=== PATIENT | female | born 1965 | race Caucasian/White ===

== ENCOUNTER 2020-07-31 08:52 | Day surgery (SDC) | payer SELFPAY ==
[2020-07-31] VITALS (8 sets, daily range): BP systolic 87–111; BP diastolic 52–68
[~2020-07-31] VITALS: Ht 167.6 cm; Wt 54.4 kg
[~2020-07-31 08:52] MED LIST: FISH OIL CAP1000 MG ORAL; LR 1000ml 1,000 ML IVLG SCH; NKM; Vit C PO
--- NOTE | 2020-07-31 08:58 | Anethesia Preoperative Eval ---
Anesthesia Pre-op PMH/ROS General Date of Evaluation: Jul 31, 2020 Anesthesiologist: Eric ASA Score: ASA 1 Mallampati Score Class I : Soft palate, uvula, fauces, pillars visible Class II: Soft palate, uvula, fauces visible Class III: Soft palate, base of uvula visible Class IV: Only hard plate visible Mallampati Classification: Class I Surgeon: Shreyas Diagnosis: Lesion Surgical Procedure: EGD Anesthesia History: none Family History: no anesthesia problems Allergies: Coded Allergies: PENICILLINS (Verified Adverse Reaction, Unknown, unknown, 08/05/16) Medications: see eMAR Patient NPO?: Yes NPO Date: Jul 31, 2020 NPO Time: 00:00 Past Medical History Cardiovascular: Denies: HTN, CAD, SD, valve dz, arrhythmia, other Pulmonary: Denies: asthma, COPD, ISAIAH, other Gastrointestinal/Genitourinary: Denies: GERD, CRI, ESRD, other Neurologic/Psychiatric: Denies: dementia, CVA, depression/anxiety, TIA, other Endocrine: Denies: DM, hypothyroidism, steroids, other HEENT: Denies: cataract (L), cataract (R), glaucoma, KAW (L), KAW (R), other Hematology/Immune: Denies: anemia, DVT, bleeding disorder, other Musculoskeletal/Integumentary: Denies: OA, RA, DJD, DDD, edema, other PSxH Narrative: c/s Anesthesia Pre-op Phys. Exam Physician Exam see chart Constitutional: NAD Cardiovascular: RRR Respiratory: CTA Airway Exam Mallampati Score: Class II MO: full ROM: full Anesthesia Pre-op A/P Labs see chart Studies Pre-op Studies: EKG - sr Risk Assessment & Plan Assessment: ASA I Plan: MAC Status Change Before Surgery: No Pre-Antibiotics Drug: N/A Dori Reyes MD Jul 31, 2020 08:58
[2020-07-31] MEDS ORDERED: LR 1000ml 1,000 ML IVLG SCH (09:00)
[2020-07-31] MEDS ORDERED: DiphenhydrAMINE 50mg/ml Inj IVP PRN (09:00)
[2020-07-31] MEDS ORDERED: Labetalol 5mg/ml 20ml vial IV PRN (09:00)
--- NOTE | 2020-07-31 09:52 | Pre-Procedure Note/Attestation ---
Pre-Procedure Note/Attestation Complete Prior to Procedure Planned Procedure: not applicable Procedure Narrative: egd Indications for Procedure Pre-Operative Diagnosis: mass Attestation I attest that I discussed the nature of the procedure; its benefits; risks and complications; and alternatives (and the risks and benefits of such alternatives), prior to the procedure, with the patient (or the patient's legal internet sales representative). I attest that, if there was a reasonable possibility of needing a blood transfusion, the patient (or the patient's legal internet sales representative) was given the [facility] standardized written summary, pursuant to the Anatoliy Henrry Blood Safety Act ([place] Health and Safety Code # 1645, as amended). I attest that I re-evaluated the patient just prior to the surgery and that there has been no change in the patient's H&P, except as documented below: Obey Pritchett MD Jul 31, 2020 09:52
--- NOTE | 2020-07-31 09:53 | Short Stay Surgery H&P ---
History of Present Illness History of Present Illness Chief Complaint dysphagia HPI Carissa Moyer is a 54 year old female who was admitted on for Lesion Patient History Allergies: Coded Allergies: PENICILLINS (Verified Adverse Reaction, Unknown, unknown, 08/05/16) Medication History Scheduled Fish Oil (Fish Oil 1,000 mg Capsule), 1,000 MG ORAL DAILY, (Reported) [Vit C], 1 TAB-CAP PO DAILY, (Reported) Review of Systems Cardiovascular: Reports: no symptoms Respiratory: Reports: no symptoms Skeletal: Reports: no symptoms Gastrointestinal: Reports: see HPI Genitourinary: Reports: no symptoms Neurologic: Reports: no symptoms Endocrine: Reports: no symptoms Hematologic: Reports: no symptoms Physical Exam Vital Signs Last Vital Signs Date Time Temp Pulse Resp B/P (MAP) Pulse Ox O2 Delivery O2 Flow Rate FiO2 07/31/20 09:41 Room Air 07/31/20 09:30 98.6 85 14 106/68 100 Skin: normal HENT: normal Heart: normal Lungs: normal Abdomen: normal Extremities: normal Plan Plan of Care egd Attestation Are the patient's medical conditions optimized for surgery? Attestation Response: yes Obey Pritchett MD Jul 31, 2020 09:53
[2020-07-31] MEDS ORDERED: Lidocaine 1% MPF 10mg/ml 5ml ONE (10:00)
[2020-07-31] MEDS ORDERED: LR 1000ml ONE (10:00)
--- NOTE | 2020-07-31 10:16 | Endoscopy Procedure Note ---
Endoscopy Procedure Note General Indication for Procedure: dysphagia Procedures Performed: EGD Operative Findings/Diagnosis: orp[harynx mass Specimen: yes Pt Tolerated Procedure Well: Yes Estimated Blood Loss: none Anesthesia Anesthesiologist: krunal Anesthesia: MAC Inserted Devices Implant(s) used?: No GI Core Measures 50 yrs or older w/o bx or poly: Not Applicable 10yrs. F/U recommended: Not Applicable Obey Pritchett MD Jul 31, 2020 10:16
--- NOTE | 2020-07-31 10:17 | Immediate Post-Op Evaluation ---
Immediate Post-Op Evalulation Immediate Post-Op Evalulation Procedure: EGD Date of Evaluation: Jul 31, 2020 Time of Evaluation: 10:16 IV Fluids: 500 Blood Products: 0 Estimated Blood Loss: 0 Urinary Output: 0 Blood Pressure Systolic: 87 Blood Pressure Diastolic: 52 Pulse Rate: 82 Respiratory Rate: 16 O2 Sat by Pulse Oximetry: 100 Temperature (Fahrenheit): 97.6 Pain Score (1-10): 0 Nausea: No Vomiting: No Complications 0 Patient Status: awake, reacts, patent, none Hydration Status: adequate Drug: N/A Dori Reyes MD Jul 31, 2020 10:17
--- NOTE | 2020-07-31 10:18 | 48 Hour Post Anesthesia Eval ---
Post Anesthesia Evaluation Procedure: EGD Date of Evaluation: Jul 31, 2020 Airway: patent Nausea: No Vomiting: No Pain Intensity: 0 Hydration Status: adequate Cardiopulmonary Status: at baseline Mental Status/LOC: patient returned to baseline Post-Anesthesia Complications: 0 Follow-up care needed: ready to discharge Dori Reyes MD Jul 31, 2020 10:18
--- NOTE | 2020-07-31 12:30 | Procedure Note ---
DATE OF PROCEDURE: 07/31/2020 SURGEON: Obey Pritchett MD. PROCEDURE: Upper endoscopy with biopsy. ANESTHESIA: Per Dr. Reyes. INSTRUMENT: Olympus adult flexible upper endoscope. INDICATION: Dysphagia. REASON FOR PROCEDURE: The procedure, risks, benefits, and possible consequences, including hemorrhage, aspiration, perforation and infection, and alternative treatments, were explained to the patient/legal guardian by Dr. Obey Pritchett and the patient/legal guardian understood and accepted these risks. PROCEDURE IN DETAIL: After informed consent was obtained and the patient was adequately sedated, Olympus upper endoscope was advanced from mouth, into the . We could not pass the scope into the esophagus. There was a mass in the oropharynx area almost causing obstruction. We tried different manipulation to pass the scope, but the patient was not tolerating it. So, we did a biopsy from this mass from the oropharynx and the procedure was terminated. SUMMARY OF FINDINGS: Incomplete endoscopy given mass in the oropharynx, status post biopsy. RECOMMENDATION: Follow up biopsy results and treat accordingly. Obey Pritchett M.D. DR: NAPOLEON JOB#: [id number] CC:
== END 2020-07-31 11:15 | disposition home or self-care (01) ==
LOC: GAS 08:52
DX: R13.10 Dysphagia, unspecified (principal); K22.2 Esophageal obstruction; Z88.0 Allergy status to penicillin
CPT/HCPCS: 43239; 94003; J2704; J7120; U0002; 94150